=== PATIENT | female | born 1995 | race Caucasian/White ===

== ENCOUNTER 2020-10-07 00:43 | Emergency (ER) | payer MEDICAID, OTHER ==
[~2020-10-07] VITALS: Ht 165.1 cm; Wt 70.3 kg
[2020-10-07 00:45] VITALS: BP 124/74
--- NOTE | 2020-10-07 00:55 | ER.PDOC ---
General Chief Complaint: Requesting Medical Care Stated Complaint: ABD PAIN Time seen by MD: 00:55 Source: patient Exam Limitations: no limitations History of Present Illness Initial Comments Patient presents for RLQ pain that has been persistent and worsening over the past 2 weeks. She has had the pain intermittently for 5-6 years. In 2014 she had the pain for the first time and it was caused by a severely swollen colon. She reports nausea but denies vomiting. She had a normal BM in the morning. No urinary complaints. She reports intermittent abdominal distension. No fever or chills. Pain 9/10 in severity. Pain is sharp with no radiation. OTC meds dot help the pain. She has not seen anyone regarding this pain in the past several years Vital Signs First Vital Signs Date Time Temp Pulse Resp B/P (MAP) Pulse Ox O2 Delivery O2 Flow Rate FiO2 10/07/20 00:45 99.0 88 20 10/07/20 00:45 124/74 (91) 98 Room Air Last Vital Signs Date Time Temp Pulse Resp B/P (MAP) Pulse Ox O2 Delivery O2 Flow Rate FiO2 10/07/20 00:45 99.0 88 20 98 10/07/20 00:45 124/74 (91) Room Air Reviewed Nursing Reviewed: Vital Signs, Abn. Noted, Nursing Assessment Constitutional: no symptoms reported EENTM: no symptoms reported Respiratory: no symptoms reported Cardiovascular: no symptoms reported Gastrointestinal: see HPI, abdomen distended, abdominal pain, nausea Genitourinary: no symptoms reported Musculoskeletal: no symptoms reported All Other Systems: Reviewed and Negative Physical Exam General Appearance: No Apparent Distress, WD/WN HEENT: PERRL/EOMI, Normal ENT Inspection Neck: Non-Tender, Supple Respiratory: lungs clear, normal breath sounds, no respiratory distress Cardiovascular: Normal Peripheral Pulses, Regular Rate, Rhythm, No Edema Gastrointestinal: Normal Bowel Sounds, No Organomegaly, Soft, Tenderness (TTP RLQ, no guarding or rebound), McBurneys point tender Back: Normal Inspection, No CVA Tenderness, No Vertebral Tenderness Extremities: Normal Range of Motion, Non-Tender Neurologic/Psychiatric: No Motor/Sensory Deficits, Alert Skin: Normal Color, Warm/Dry Results/Orders Results/Orders Orders - MARLON SAUNDERS MD Urinalysis (10/07/20 00:53) Cbc With Auto Diff (10/07/20 00:53) Comprehensive Metabolic Panel (10/07/20 00:53) Amylase (10/07/20 00:53) Lipase (10/07/20 00:53) PT (10/07/20 00:53) Ct Abd/Pel With Iv Contrast (10/07/20 00:53) Partial Thromboplastin Time. (10/07/20 00:53) Hcg Qualitative Serum (10/07/20 00:53) Saline Lock (10/07/20 00:53) 0.9 % Sodium Chloride (Ns 1000ml) (10/07/20 01:05) Ketorolac Tromethamine (Toradol) (10/07/20 01:05) Ondansetron Hcl/Pf (Zofran) (10/07/20 01:05) 0.9 % Sodium Chloride (Ns 1000ml) (10/07/20 01:14) Ondansetron Hcl/Pf (Zofran) (10/07/20 01:14) Ketorolac Tromethamine (Toradol) (10/07/20 01:14) Urine Culture (10/07/20 01:00) Us Pelvic Non Ob (10/07/20 02:34) Us Tv-Electrical Technology Instructor (10/07/20 03:47) Vital Signs Date Time Temp Pulse Resp B/P (MAP) Pulse Ox O2 Delivery O2 Flow Rate FiO2 10/07/20 00:45 99.0 88 20 98 10/07/20 00:45 99.0 88 20 124/74 (91) 98 Room Air 10/07/20 00:45 99.0 88 20 Administered Medications Medications (Trade) Dose Ordered Sig/Zakiya Route PRN Reason Start Time Stop Time Status Last Admin Dose Admin Ketorolac Tromethamine (Toradol) 30 mg STAT STAT IV 10/07/20 01:05 10/07/20 01:06 DC 10/07/20 01:18 30 MG Ondansetron HCl (Zofran) 4 mg STAT STAT IV 10/07/20 01:05 10/07/20 01:06 DC 10/07/20 01:18 4 MG Sodium Chloride 1,000 ml @ 0 mls/hr Q0M STAT IV 10/07/20 01:05 10/07/20 01:06 DC 10/07/20 01:19 1,200 MLS/HR Laboratory Tests Test 10/07/20 01:00 10/07/20 01:15 Urine Collection Type CCMS Urine Color YELLOW (YELLOW) Urine Appearance TURBID (CLEAR) Urine Bilirubin NEGATIVE MG/DL (NEGATIVE) Urine Ketones NEGATIVE (NEGATIVE) Urine Specific [place] 1.015 (1.005-1.035) Urine pH 6.0 (5.0-6.0) Urine Protein NEGATIVE (NEGATIVE) Urine Urobilinogen 0.2 (NEGATIVE) Urine Nitrate NEGATIVE (NEGATIVE) Urine Leukocyte Esterase 25 /uL TRACE (NEGATIVE) Urine Blood TRACE (NEGATIVE) Urine RBC 0-2 RBC/HPF (NONE SEEN) Urine WBC 2-5 WBC/HPF (0-2) Urine Squamous Epithelial Cells FEW #/HPF (FEW) Urine Bacteria FEW (NONE SEEN) H Urine Glucose NEGATIVE (NEGATIVE) White Blood Count 10.8 10^3/uL (4.5-11.0) Red Blood Count 4.76 10^6/uL (4.00-5.20) Hemoglobin 13.9 g/dL (12.0-15.0) Hematocrit 41.3 % (36.0-46.0) Mean Corpuscular Volume 86.8 fL (78-100) Mean Corpuscular Hemoglobin 29.2 pg (26-34) Mean Corpuscular Hemoglobin Concent 33.7 g/dL (33-36.5) Red Cell Distribution Width 13.1 % (11.5-14.5) Platelet Count 288 10^3/uL (150-400) Mean Platelet Volume 10.7 fL (7.8-11.0) Neutrophils (%) (Auto) 57.1 % (41.0-85.0) Lymphocytes (%) (Auto) 31.4 % (24.0-44.0) Monocytes (%) (Auto) 6.4 % (5.0-12.0) Neutrophils # (Auto) 6.2 10^3/uL (1.8-7.7) Lymphocytes # (Auto) 3.40 10^3/uL1 (1.0-4.8) Monocytes # (Auto) 0.7 10^3/uL (0.3-0.8) Absolute Immature Granulocyte (auto 0.03 10^3 u/L (0-2) Absolute Eosinophils (auto) 0.4 10^3/uL (0.0-0.2) H Immature Granulocytes % 0.30 % (0.00-0.50) Eosinophils % 4.0 % (0.0-5.0) Basophils % 0.8 % (0.0-0.2) H Basophils # 0.1 10^3/uL (0.0-0.1) Prothrombin Time 9.9 SEC (9.3-11.3) Prothrombin Time INR (Non-Therap) 1.0 Activated Partial Thromboplast Time 26.0 SEC (24.67-30.72) Sodium Level 139 mmol/L (132-145) Potassium Level 3.7 mmol/L (3.6-5.2) Chloride Level 104.0 mmol/L (96-109) Carbon Dioxide Level 21.1 mmol/L (20.0-32) Anion Gap 17.6 Blood Urea Nitrogen 20 mg/dL (7-18) H Creatinine 0.89 mg/dL (0.59-1.40) Estimated GFR () 94.3 (>/=60) Est GFR (CKD-EPI)(Non-Afr Faroese) 77.9 (>/=60) BUN/Creatinine Ratio 22.0 Glucose Level 96 mg/dL (70-110) Calcium Level 8.7 mg/dL (8.4-10.5) Total Bilirubin 0.6 mg/dL (0.2-1.0) Aspartate Amino Transferase (AST) 13 U/L (0-35) Alanine Aminotransferase (ALT) 34 U/L (12-78) Alkaline Phosphatase 53 U/L (50-136) Total Protein 8.7 g/dL (6.4-8.2) H Albumin 4.6 g/dL (3.4-5.0) Globulin 4.1 Albumin/Globulin Ratio 1.121 Amylase Level 54 U/L (25-115) Lipase 117 U/L (114-286) Serum HCG, Qualitative NEGATIVE (NEGATIVE) Progress Progress Labs and CT were unremarkable and did not reveal an obvious etiology of the patients CC. She was feeling improved after toradol. US was obtianed to further evaluate the adnexa and there was good dopplerable flow to the ovaries with no signs of torsion. Patient will be discharged with prescription for naprosyn for continued pain control and instructed to follow up with GI for possible colonoscopy vs other evaluation of her longstanding lower abdominal pain. If sh has any new or worsening sx including worsening pain fever or other concerns she should return to the ER. Otherwise follow up with PCP for GI referral ER DEPART Departure Time of Disposition: 03:53 Disposition: 01 HOME, SELF-CARE Impression: Primary Impression: Right lower quadrant abdominal pain Condition: Improved Referrals: PCP,UNKNOWN (PCP) PRIMARY CARE PROVIDER Comments naprosyn 500mg BID Duration or Time Spent with Pa: 25 MARLON SAUNDERS MD Oct 07, 2020 00:55
--- NOTE | 2020-10-07 01:00 | NUR ---
PT AMBULATORY TO BATHROOM AT THIS TIME. STEADY GAIT NOTED.
[2020-10-07] MEDS ORDERED: NS 1000ML 1,000 ML ONE (01:14)
[2020-10-07] MEDS ORDERED: ZOFRAN ONE (01:14)
[2020-10-07] MEDS ORDERED: TORADOL ONE (01:14)
[2020-10-07] MEDS: ZOFRAN IV STA (01:18)
[2020-10-07] MEDS: TORADOL IV STA (01:18)
[2020-10-07] MEDS: NS 1000ML 1,000 ML STA (01:19)
[2020-10-07 01:29] LABS: BASOPHIL # 0.1 10^3/uL (0.0-0.1); BASOPHIL % 0.8 % (0.0-0.2); EOSINOPHIL # 0.4 10^3/uL (0.0-0.2); LYMPHOCYTES % 31.4 % (24.0-44.0); MEAN CORP HGB 29.2 pg (26-34); MONOCYTES # 0.7 10^3/uL (0.3-0.8); MONOCYTES % 6.4 % (5.0-12.0); NEUTROPHIL # 6.2 10^3/uL (1.8-7.7); NEUTROPHILS % 57.1 % (41.0-85.0); PLATELET COUNT 288 10^3/uL (150-400); RED CELL DISTRIBUTION WIDTH 13.1 % (11.5-14.5)
[2020-10-07 01:32] LABS: APPEARANCE,URINE TURBID (CLEAR); BILIRUBIN,URINE NEGATIVE (NEGATIVE); UA COLOR YELLOW (YELLOW); UROBILINOGEN,URINE 0.2 (NEGATIVE)
[2020-10-07 01:37] LABS: CALCIUM 8.7 mg/dL (8.4-10.5); CARBON DIOXIDE 21.1 mmol/L (20.0-32)
--- NOTE | 2020-10-07 01:38 | NUR ---
PT REPORTING IMPROVEMENT IN PAIN AFTER MEDICATION ADMINISTRATION
--- NOTE | 2020-10-07 01:45 | NUR ---
PT TAKEN TO CT AT THIS TIME.
--- NOTE | 2020-10-07 02:12 | DIREP ---
PROCEDURE:CT ABDOMEN/PELVIS W/ CONTRAST COMPARISON:None. INDICATIONS:RLQ pain TECHNIQUE:Axial images were created through the abdomen and pelvis with non-ionic intravenous contrast material. No oral contrast was administered. The lack of oral contrast limits assessment of the bowel Sagittal and coronal reconstructions were performed from source images. FINDINGS: LUNG BASES:Normal. No visible pulmonary or pleural disease. LIVER:Normal. No significant liver lesions are identified. BILIARY:Normal. No visible dilatation or calcification. PANCREAS:Normal. No lesion, fluid collection, ductal dilatation, or atrophy. SPLEEN:Normal. No enlargement or focal lesion. ADRENALS:Normal. No mass or enlargement. URINARY TRACT:3.5 cm left renal cyst. No suspicious lesions or hydronephrosis. AORTA/VASCULAR:Normal. No aneurysm. RETROPERITONEUM:Normal. No mass or adenopathy. BOWEL/MESENTERY:The appendix is visualized and appears normal. There is no intestinal obstruction, free fluid, free air or mesenteric inflammatory changes. ABDOMINAL WALL:Normal. No mass or hernia. PELVIC ORGANS:Normal. No visible mass. Pelvic organs appropriate for patient age. BONES:Normal for age. No bony lesion or acute fracture. OTHER:Negative. CONCLUSION: 1. Incidentally noted left renal cyst. 2. No acute intra-abdominal process. The appendix is normal Dictated by: Ra Larson DO on 10/07/2020 at 02:09 AM
[2020-10-07 02:37] VITALS: BP 112/65
--- NOTE | 2020-10-07 02:37 | NUR ---
US CALLED AT THIS TIME FOR ORDERED EXAM. SPOKE WITH PACHCEO.
[2020-10-07 03:11] VITALS: BP 109/62
--- NOTE | 2020-10-07 03:19 | NUR ---
Pt taken to u/s at this time
[2020-10-07 04:00] VITALS: BP 110/63
--- NOTE | 2020-10-07 04:14 | DIREP ---
PROCEDURE:US PELVIC FOLLOWED BY TRANSVAGINAL COMPARISON:None. INDICATIONS:RLQ/ABD SHARP painS X2WKS, NAUSEA, HX OV CYSTS TECHNIQUE:Pelvic ultrasound using transabdominal technique. Endovaginal images were also obtained for better assessment of the uterus and adnexa.. FINDINGS: Uterus Uterus Length:7.5 cm Uterus Height:2.93 cm Uterus Width:4.62 cm Endometrium Thickness:0.47 cm Ovaries Right Ovary Width:2.48 cm Right Ovary Length:3.75 cm Right Ovary Height:2.29 cm Left Ovary Width:2.53 cm Left Ovary Length:3.86 cm Left Ovary Height:2.19 cm UTERUS:Endometrial thickness is 5 mm. OVARIES:Normal bilateral appearance with no significant masses. Complex dominant right follicle measuring approximately 1.6 x 1.6 x 1.2 cm. Complex dominant left follicle measuring 9 x 9 x 8 mm.. Each ovary is normal in size for a patient of this age. CUL-DE-SAC:Negative. OTHER:Negative. CONCLUSION:Complex bilateral dominant follicles. Otherwise unremarkable Dictated by: Ra Larson DO on 10/07/2020 at 04:09 AM
== END 2020-10-07 04:00 | disposition home or self-care (01) ==
LOC: ER 00:43
DX: R10.31 Right lower quadrant pain (principal); R11.0 Nausea; Z79.1 Long term (current) use of non-steroidal anti-inflammatories (NSAID); Z79.899 Other long term (current) drug therapy
CPT/HCPCS: 36415; 74177; 76830; 76856; 80053; 81000; 82150; 83690; 84703; 85025; 85610; 85730; 87086; 96361; 96374; 96375; 99285; J1885; J2405; J7030; Q9965

== ENCOUNTER 2021-01-28 00:20 | Emergency (ER) | payer OTHER ==
[~2021-01-28] VITALS: Ht 165.1 cm; Wt 70.3 kg
[2021-01-28 00:30] VITALS: BP 131/90
--- NOTE | 2021-01-28 01:01 | ER.PDOC ---
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 She was carrying a heavy box of frozen food and the freezer door was open and she caught her left middle finger hard against the latch of the door. Past Medical History Medical History: thyroid disease Surgical History: no surgical history Social History Smoking: non-smoker Alcohol Use: none Drug Use: none Review of Systems Constitutional: denies chills, denies fever EENTM: denies eye pain, denies blurred vision Respiratory: denies cough, denies shortness of breath Cardiovascular: denies chest pain, denies syncope Gastrointestinal: denies abdominal pain, denies vomiting Genitourinary: denies dysuria, denies hematuria Musculoskeletal: denies back pain, denies joint pain Skin: denies lesions, denies rash Psychiatric/Neurological: denies anxiety, denies depressed Physical Exam Head/ENT: nml inspection Neck/Back: nml inspection Resp/CVS: no resp distress Abdomen: non-tender Comments Left hand: The left middle finger is painful to palpation around the PIP joint. She has limited range of motion due to pain.There is a tiny red area but no break in the skin or laceration. Distally the digit is neurovascularly intact. Splinting Splinting : Splint: medardo tape (middle and ring fingers, taped by ut) Results/Orders Results/Orders Orders - KARYN HUNTER MD Xr Finger Lt (01/28/21 00:57) ER DEPART Departure Time of Disposition: 02:37 Disposition: 01 HOME / SELF CARE / HOMELESS Impression: Primary Impression: Finger contusion Condition: Stable Patient Instructions: Jammed Finger Referrals: PCP,UNKNOWN (PCP) PRIMARY CARE PROVIDER Duration or Time Spent with Pa: 10 KARYN HUNTER MD January 28, 2021 01:01
--- NOTE | 2021-01-28 02:24 | DIREP ---
PROCEDURE:XRAY FINGER-LT COMPARISON:None. INDICATIONS:trauma to middle finger TECHNIQUE:Three views of the middle finger. FINDINGS: BONES:Normal. JOINTS:Normal. SOFT TISSUES:Normal. OTHER:No additional findings. CONCLUSION:No acute findings. Dictated by: Moris Quarles MD on 01/28/2021 at 02:21 AM
[2021-01-28 02:38] VITALS: BP 129/87
[2021-01-28 02:47] VITALS: BP 125/85
--- NOTE | 2021-01-28 02:48 | NUR ---
You were seen by ED doctor today. Follow up as needed and follow instructions as explained by the provider. Return if symptoms persist or worsen.
== END 2021-01-28 02:50 | disposition home or self-care (01) ==
LOC: ER 00:20
DX: S60.032A Contusion of left middle finger without damage to nail, initial encounter (principal); E07.9 Disorder of thyroid, unspecified; W23.0XXA Caught, crushed, jammed, or pinched between moving objects, initial encounter; Y93.89 Activity, other specified; Y92.89 Other specified places as the place of occurrence of the external cause; Y99.8 Other external cause status
CPT/HCPCS: 99283; 73140-LT

== ENCOUNTER 2021-02-18 23:33 | Emergency (ER) | payer OTHER ==
[~2021-02-18] VITALS: Ht 165.1 cm; Wt 72.6 kg
[2021-02-18 23:41] VITALS: BP 133/80
[2021-02-18 23:53] LABS: UA COLOR YELLOW
[2021-02-18 23:54] LABS: BILIRUBIN,URINE NEGATIVE (NEGATIVE); UROBILINOGEN,URINE 0.2 E.U./dL (0.2)
[2021-02-19] MEDS ORDERED: LIDOCAINE 1% VIAL ONE (00:12)
[2021-02-19] MEDS ORDERED: ROCEPHIN ONE (00:13)
[2021-02-19 00:20] VITALS: BP 117/67
--- NOTE | 2021-02-19 00:20 | ER.PDOC ---
General Chief Complaint: Female Urogenital Problems Stated Complaint: POSS UTI Time seen by MD: 23:55 Source: patient Exam Limitations: no limitations History of Present Illness Initial Comments States she noticed some burning with urination this morning throughout the day the burning became somewhat worse and she noted some left flank pain. Denies fevers or chills. Denies vaginal discharge. States her last menstrual period was last week. Timing/Duration: this morning Severity/Quality: moderate, burning LMP (females 10-50): last week Prior symptoms/Treatment: Similar symptoms previous Past Medical History Medical History: thyroid disease Surgical History: no surgical history Social History Alcohol Use: occassionally Drug Use: none Review of Systems Constitutional: denies no symptoms reported, denies see HPI, denies chills, denies diaphoresis, denies fever, denies malaise, denies weakness, denies other EENTM: denies no symptoms reported, denies see HPI, denies eye pain, denies blurred vision, denies tearing, denies double vision, denies ear pain, denies ear discharge, denies nose pain, denies nose congestion, denies throat pain, denies throat swelling, denies mouth pain, denies mouth swelling, denies other Respiratory: denies no symptoms reported, denies see HPI, denies cough, denies orthopnea, denies shortness of breath, denies stridor, denies wheezing, denies other Cardiovascular: denies no symptoms reported, denies see HPI, denies chest pain, denies edema, denies palpitations, denies syncope, denies other Gastrointestinal: denies no symptoms reported, denies see HPI, denies abdominal pain, denies constipation, denies diarrhea, denies nausea, denies vomiting, denies other Genitourinary: burning Musculoskeletal: denies no symptoms reported, denies see HPI, denies back pain, denies gout, denies joint pain, denies joint swelling, denies muscle pain, denies muscle stiffness, denies neck pain, denies other Skin: denies no symptoms reported, denies see HPI, denies change in color, denies change in hair/nails, denies dryness, denies lesions, denies lumps, denies rash, denies other Psychiatric/Neurological: denies no symptoms reported, denies see HPI, denies anxiety, denies depressed, denies emotional problems, denies headache, denies numbness, denies paresthesia, denies pre-existing deficit, denies seizure, denies tingling, denies tremors, denies weakness, denies other Endocrine: denies no symptoms reported, denies see HPI, denies excessive sweating, denies flushing, denies intolerance to cold, denies intolerance to heat, denies increased hunger, denies increased thrist, denies increased urine, denies unexplained weight gain, denies unexplaned weight loss, denies other Physical Exam General Appearance: No Apparent Distress, WD/WN EENT: eyes nml inspection, nml ENT inspection Neck: nml inspection, non-tender Cardiovascular/Respiratory: Regular Rate, Rhythm, No M/R/G Abdomen: Normal Bowel Sounds, Non Tender Extremities: Normal Range of Motion, Non-Tender 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/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: 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 II-XII NML as Tested, No Motor/Sensory Deficits Skin: Normal Color, Warm/Dry Results/Orders Results/Orders Orders - AARON ALVARADO DO Urinalysis (02/18/21 23:49) Urine Culture (02/18/21 23:33) Lidocaine Hcl (Lidocaine 1% Vial) (02/19/21 00:12) Ceftriaxone Sodium (Rocephin) (02/19/21 00:13) Ceftriaxone Sodium (Rocephin) (02/19/21 00:30) Vital Signs Date Time Temp Pulse Resp B/P (MAP) Pulse Ox O2 Delivery O2 Flow Rate FiO2 02/18/21 23:41 98.3 96 16 99 02/18/21 23:41 98.3 96 16 133/80 (97) 99 Room Air 02/18/21 23:41 98.3 96 16 Laboratory Tests Test 02/18/21 23:33 Urine Collection Type RANDOM Urine Color YELLOW Urine Appearance CLEAR Urine Bilirubin NEGATIVE (NEGATIVE) Urine Ketones NEGATIVE (NEGATIVE) Urine Specific [place] 1.010 (1.005-1.030) Urine pH 6.0 (4.5-8.0) Urine Protein NEGATIVE (NEGATIVE) Urine Urobilinogen 0.2 E.U./dL (0.2) Urine Nitrate NEGATIVE (NEGATIVE) Urine Leukocyte Esterase TRACE (NEGATIVE) H Urine Glucose (Auto)(UA) NEGATIVE (NEGATIVE) Urine Blood MODERATE (NEGATIVE) H Urine RBC 0-2 RBC/HPF (NONE SEEN) Urine WBC 0-2 WBC/HPF (0-2) Urine Bacteria FEW (NONE SEEN) H Progress Progress Given ceftriaxone 1 g IM. ER DEPART Departure Time of Disposition: 00:19 Disposition: 01 HOME / SELF CARE / HOMELESS Impression: Primary Impression: Urinary tract infection Condition: Improved Patient Instructions: Urinary Tract Infection, Child Referrals: PCP,UNKNOWN (PCP) PRIMARY CARE PROVIDER Duration or Time Spent with Pa: AARON SERNA DO Feb 19, 2021 00:20
[2021-02-19] MEDS ORDERED: ROCEPHIN IM ONE (00:30)
== END 2021-02-19 00:23 | disposition home or self-care (01) ==
LOC: ER 23:33
DX: N39.0 Urinary tract infection, site not specified (principal)
CPT/HCPCS: 81001; 87077; 87086; 87186; 96372; 99283; J0696; J2001; 81003